=== PATIENT | female | born 1975 ===

== ENCOUNTER → 2017-07-16 | Outpatient (REF) | payer MEDICARE, BC ==
[2017-07-16 13:39] LABS: PLATELET COUNT, AUTOMATED 301 K/uL (150-450)
== END ==
PROVIDERS: ATTEND Physician Assistant Medical
DX: R09.02 Hypoxemia (principal); R06.02 Shortness of breath; R42 Dizziness and giddiness; R07.9 Chest pain, unspecified
CPT/HCPCS: 82040; 82247; 82310; 82374; 82435; 82565; 82947; 83880; 84075; 84132; 84155; 84295; 84450; 84460; 84484; 84520; 85025; 85379